=== PATIENT | male | born 1990 | race African-American/Black ===

== ENCOUNTER 2016-10-19 08:21 | Emergency (ER) | payer OTHER ==
[~2016-10-19] VITALS: Ht 180.3 cm; Wt 97.5 kg
[~2016-10-19 08:21] MED LIST: AMOX500C2 PO; BENZ1LOZ52 MM; IBUP800T25 PO
[2016-10-19 08:28] VITALS: Ht 180.3 cm; Wt 97.5 kg
[2016-10-19] MEDS ORDERED: DEXAMETHASONE 10 MG/ML 1 ML INJ PO ONE (09:00)
[2016-10-19] MEDS ORDERED: IBUPROFEN 600 MG TAB PO ONE (09:00)
[2016-10-19] MEDS ORDERED: PENI500T PO (09:15)
[2016-10-19] MEDS ORDERED: TYL500 PO (09:15)
--- NOTE | 2016-10-19 09:25 | ERD ---
ER Documentation Chief Complaint Date/Time DATE: 10/19/16 TIME: 09:22 Chief Complaint sore throat for 2 days no difficutly breathing HPI This is a 25-year-old male presents to the ER with a sore throat for the last 2 days. Patient states that it is painful for him to swallow, however he denies difficulty in breathing or swallowing. Patient has had a fever and chills. He denies a cough. Patient has recurrent episodes of strep throat. There are no sick contacts at home. ROS 12 point review of systems was done, all negative except per HPI. Medications Home Meds Active Scripts Acetaminophen* (Tylenol*) 500 Mg Tab, 500 MG PO Q4H Y for MILD PAIN LEVEL 1-3 for 3 Days, TAB Prov:ZOE GAINES 10/19/16 Penicillin V Potassium* (Penicillin V K*) 500 Mg Tab, 500 MG PO TID for 10 Days , TAB Prov:ZOE GAINES 10/19/16 Benzocaine/Menthol* (Cepacol* Sore Throat Lozenges) 1 Each Lozenge, 1 EACH MM q2h Y for SORE THROAT, #30 LOZENGE Prov:CHINO MILLER PA-C 01/21/16 Ibuprofen* (Motrin*) 800 Mg Tab, 800 MG PO Q8, #30 TAB Prov:CHINO MILLER PA-C 01/21/16 Amoxicillin* (Amoxicillin*) 500 Mg Cap, 500 MG PO BID for 10 Days, CAP Prov:CHINO MILLER PA-C 01/21/16 Allergies Allergies: Coded Allergies: No Known Allergy (Verified , 10/19/16) PMhx/Soc Anesthesia Reaction: No Hx Neurological Disorder: No Hx Respiratory Disorders: No Hx Cardiac Disorders: No Hx Psychiatric Problems: No Hx Miscellaneous Medical Probl: No Hx Alcohol Use: No Hx Substance Use: Yes (Thc use) Hx Tobacco Use: No Smoking Status: Never smoker Physical Exam Vitals Vital Signs Date Time Temp Pulse Resp B/P Pulse Ox O2 Delivery O2 Flow Rate FiO2 10/19/16 08:28 98.4 66 16 134/80 99 Physical Exam GENERAL: The patient is well-developed, well-nourished, in no acute distress. NECK: Cervical spine is non tender with no step off. Supple, no nuchal rigidity HEENT: Atraumatic. Pupils equal, round and reactive to light. Extraocular muscles are grossly intact. Conjunctivae pink, no discharge. Bilateral tympanic membranes are clear with no evidence of erythema, effusion or dulling of the light reflex. No tonsillar erythema with exudates, no uvular deviation no kissing tonsils. Clear rhinorrhea. RESPIRATORY: Clear to auscultation bilaterally. There are no rales, wheezes or rhonchi. HEART: Regular rate and rhythm. No murmurs, clicks, rubs or gallops. EXTREMITIES: No clubbing or cyanosis. Full range of motion. Grossly neurovascularly intact. NEUROLOGIC: Alert and oriented. Cranial nerves II through XII are intact. SKIN: There is no rash. The skin is warm and dry. Results 24 hrs Current Medications Medications (Trade) Dose Ordered Sig/Yuliana Route PRN Reason Start Time Stop Time Status Last Admin Dose Admin Dexamethasone (Decadron) 10 mg ONCE ONCE PO 10/19/16 09:00 10/19/16 09:01 DC 10/19/16 09:08 Ibuprofen (Motrin) 600 mg ONCE ONCE PO 10/19/16 09:00 10/19/16 09:01 DC 10/19/16 09:08 Procedures/MDM This is a 25-year-old male presents here with a sore throat. On physical examination patient does have strep pharyngitis. Suspicion for retropharyngeal abscess or peritonsillar abscess is low does not have any uvular deviation or kissing tonsils. Patient was given a dose of steroids in the ER and ibuprofen for his pain and tonsillar swelling without complications. He will be sent home with penicillin. He needs to follow-up with his primary care doctor within 1-2 days or return to ER sooner if symptoms worsen. My medical decision making shared with the patient he understands and agrees with plan. Departure Diagnosis: Primary Impression: Strep throat Condition: Stable Patient Instructions: Strep Throat Additional Instructions: Call your primary care doctor TOMORROW for an appointment during the next 1-2 days.See the doctor sooner or return here if your condition worsens before your appointment time. ZOE GAINES Oct 19, 2016 09:25
== END 2016-10-19 09:32 | disposition home or self-care (01) ==
LOC: FTE 08:21
DX: J02.0 Streptococcal pharyngitis (principal)
CPT/HCPCS: J1100; Z7502; Z7610; 99283

== ENCOUNTER 2016-10-24 00:29 | Emergency (ER) | payer OTHER ==
[~2016-10-24] VITALS: Ht 180.3 cm; Wt 92.5 kg
[~2016-10-24 00:29] MED LIST changes: +AMO500 PO; -AMOX500C2 PO; +PEN500 PO; +TYL500 PO
[2016-10-24 00:34] VITALS: Ht 180.3 cm; Wt 92.5 kg
[2016-10-24] MEDS ORDERED: IOHEXOL 300MG/ML 150 ML BTL ONE (02:03)
[2016-10-24] MEDS ORDERED: SOD CHLORIDE 0.9% 100 ML ONE (02:03)
[2016-10-24] MEDS ORDERED: BENZOCAINE 20% 56 ML SPRAY TOP STA (02:03)
[2016-10-24] MEDS ORDERED: PIPER-TAZO 3.375 GM IV (PMX) 100 ML IVPB STA (02:03)
[2016-10-24 02:05] LABS: BASOPHILS % 0.2 % (0.0-2.0); EOSINOPHILS % 0.2 % (0.0-7.0); HEMATOCRIT 44.6 % (42.0-52.0); HEMOGLOBIN 15.1 g/dl (14.0-18.0); LYMPHOCYTES # 2.5 10^3/ul (0.8-2.9); LYMPHOCYTES % 15.1 % (15.0-51.0); MEAN CORPUSCULAR HEMOGLOBIN 30.1 pg (29.0-33.0); MEAN CORPUSCULAR HGB CONC 33.9 g/dl (32.0-37.0); MEAN CORPUSCULAR VOLUME 88.8 fl (82.0-101.0); MEAN PLATELET VOLUME 9.6 fl (7.4-10.4); MONOCYTE # 1.4 10^3/ul (0.3-0.9); MONOCYTES % 8.7 % (0.0-11.0); NEUTROPHILS % 75.4 % (39.0-77.0); PLATELET COUNT 257 10^3/UL (140-415); RED BLOOD COUNT 5.02 10^6/ul (4.70-6.10); RED CELL DISTRIBUTION WIDTH 13.8 % (11.5-14.5); WHITE BLOOD COUNT 16.5 10^3/ul (4.8-10.8)
[2016-10-24] MEDS ORDERED: KETOROLAC 30 MG INJ IV STA (02:07)
[2016-10-24 02:26] LABS: ALBUMIN/GLOBULIN RATIO 1.11; BILIRUBIN,INDIRECT 0.9 mg/dl (0-1.1); BILIRUBIN,TOTAL 0.9 mg/dl (0.2-1.3); CALCIUM 10.7 mg/dl (8.4-10.2); CREATININE 1.09 mg/dl (0.61-1.24); POTASSIUM 3.7 mmol/L (3.5-5.1); TOTAL PROTEIN 9.5 g/dl (6.1-8.1)
[2016-10-24] MEDS ORDERED: CLINDAMYCIN 600 MG/D5W (PMX) 50 ML IVPB STA (02:41)
[2016-10-24] MEDS ORDERED: CLIN-73 PO (02:48)
[2016-10-24] MEDS ORDERED: NAPR-260 PO (02:48)
--- NOTE | 2016-10-24 02:59 | ERD ---
ER Documentation Chief Complaint Date/Time DATE: 10/24/16 TIME: 02:50 Chief Complaint sore throat; seen Wed here but not improving. denies NVD. HPI 5-year-old male presents to the emergency room for severe sore throat since last. Patient was evaluated at this facility on Monday and was given penicillin, patient states that he has been taking and found no improvement. Patient states that he has been worsening today. Denies any shortness of breath however he he states that he has a muffled voice. ROS All systems reviewed and are negative except as per history of present illness. Medications Home Meds Active Scripts Naproxen* (Naprosyn*) 500 Mg Tablet, 500 MG PO BID Y for PAIN AND/OR INFLAMMATION, #30 TAB Prov:ASHLEY MENCHACA PA-C 10/24/16 Clindamycin Hcl* (Clindamycin Hcl*) 300 Mg Capsule, 300 MG PO TID for 10 Days, CAP Prov:ASHLEY MENCHACA PA-C 10/24/16 Acetaminophen* (Tylenol*) 500 Mg Tab, 500 MG PO Q4H Y for MILD PAIN LEVEL 1-3 for 3 Days, TAB Prov:ZOE GAINES 10/19/16 Penicillin V Potassium* (Penicillin V K*) 500 Mg Tab, 500 MG PO TID for 10 Days , TAB Prov:ZOE GAINES 10/19/16 Benzocaine/Menthol* (Cepacol* Sore Throat Lozenges) 1 Each Lozenge, 1 EACH MM q2h Y for SORE THROAT, #30 LOZENGE Prov:CHINO MILLER PA-C 01/21/16 Ibuprofen* (Motrin*) 800 Mg Tab, 800 MG PO Q8, #30 TAB Prov:CHINO MILLER PA-C 01/21/16 Amoxicillin* (Amoxicillin*) 500 Mg Cap, 500 MG PO BID for 10 Days, CAP Prov:CHINO MILLER PA-C 01/21/16 Allergies Allergies: Coded Allergies: No Known Allergy (Verified , 10/19/16) PMhx/Soc Anesthesia Reaction: No Hx Neurological Disorder: No Hx Respiratory Disorders: No Hx Cardiac Disorders: No Hx Psychiatric Problems: No Hx Miscellaneous Medical Probl: No Hx Alcohol Use: No Hx Substance Use: Yes (Thc use) Hx Tobacco Use: No Smoking Status: Never smoker Physical Exam Vitals Vital Signs Date Time Temp Pulse Resp B/P Pulse Ox O2 Delivery O2 Flow Rate FiO2 10/24/16 00:34 98.1 67 20 160/102 94 Physical Exam Const: WDWN, airways intact Head: Atraumatic Eyes: Normal Conjunctiva ENT: Normal External Ears, Nose moderate left peritonsillar abscess Neck: Full range of motion..~ No meningismus. Resp: Clear to auscultation bilaterally Cardio: Regular rate and rhythm, no murmurs Abd: Soft, non tender, non distended. Normal bowel sounds Skin: No petechiae or rashes Back: No midline or flank tenderness Ext: No cyanosis, or edema Neur: Awake and alert Psych: Normal Mood and Affect Result Diagram: 10/24/1613410/24/16134 Results 24 hrs Laboratory Tests Test 10/24/16 01:35 White Blood Count 16.510^3/ul Red Blood Count 5.0210^6/ul Hemoglobin 15.1g/dl Hematocrit 44.6% Mean Corpuscular Volume 88.8fl Mean Corpuscular Hemoglobin 30.1pg Mean Corpuscular Hemoglobin Concent 33.9g/dl Red Cell Distribution Width 13.8% Platelet Count 17564^3/UL Mean Platelet Volume 9.6fl Neutrophils % 75.4% Lymphocytes % 15.1% Monocytes % 8.7% Eosinophils % 0.2% Basophils % 0.2% Nucleated Red Blood Cells % 0.0/100WBC Neutrophils # (Manual) 12.410^3/ul Lymphocytes # 2.510^3/ul Monocytes # 1.410^3/ul Eosinophils # 0.010^3/ul Basophils # 0.010^3/ul Nucleated Red Blood Cells # 0.010^3/ul Sodium Level 144mmol/L Potassium Level 3.7mmol/L Chloride Level 103mmol/L Carbon Dioxide Level 25mmol/L Anion Gap 20 Blood Urea Nitrogen 15mg/dl Creatinine 1.09mg/dl Glucose Level 114mg/dl Calcium Level 10.7mg/dl Total Bilirubin 0.9mg/dl Direct Bilirubin 0.00mg/dl Indirect Bilirubin 0.9mg/dl Aspartate Amino Transf (AST/SGOT) 23IU/L Alanine Aminotransferase (ALT/SGPT) 23IU/L Alkaline Phosphatase 87IU/L Total Protein 9.5g/dl Albumin 5.0g/dl Globulin 4.50g/dl Albumin/Globulin Ratio 1.11 Current Medications Medications (Trade) Dose Ordered Sig/Yuliana Route PRN Reason Start Time Stop Time Status Last Admin Dose Admin Sodium Chloride (NS) 100 ml @ ud STK-MED ONCE .ROUTE 10/24/16 02:03 10/24/16 02:04 DC Iohexol 150 ml 150 ml STK-MED ONCE .ROUTE 10/24/16 02:03 10/24/16 02:04 DC 10/24/16 02:21 Piperacillin Sod/ Tazobactam Sod (Zosyn 3.375gm/ 100 ml (Pmx)) 100 ml @ 200 mls/hr ONCE STAT IVPB 10/24/16 02:03 10/24/16 02:32 DC 10/24/16 02:26 Benzocaine (Dermoplast Sherman) 1 spray PRN STAT TOP 10/24/16 02:03 10/24/16 02:05 DC 10/24/16 02:26 Ketorolac Tromethamine (Toradol) 30 mg ONCE STAT IV 10/24/16 02:07 10/24/16 02:08 DC 10/24/16 02:25 Dexamethasone 10 mg 10 mg ONCE ONCE IV 10/24/16 03:00 10/24/16 03:01 Clindamycin HCl/ Dextrose (Cleocin 600 Mg/ D5W (Pmx)) 50 ml @ 50 mls/hr ONCE STAT IVPB 10/24/16 02:41 10/24/16 03:40 Procedures/MDM 35-year-old male presents to the emergency department with left peritonsillar abscess. He was evaluated at this facility last Monday and was given penicillin, patient returns with no improvement and worsening condition. Patient is nontoxic appearing, afebrile, he appears well. His airways are intact and has no evidence of respiratory distress or stridor. IV access established, patient was given, Decadron and Unasyn. I have consulted my supervising physician who has also evaluated the patient. I have assisted to aspirate the abscess. Verbal consent was obtained, benzocaine spray was applied using a spinal needle and syringe, this amount of purulence was drained without any complications. Patient had significant improvement in symptoms. Patient stable to be discharged home with strict precautions to return to the emergency department for any worsening signs or symptoms. I discussed with the patient to follow-up with an ENT specialist tomorrow. Patient clindamycin was provided. Patient understands and agrees with this plan Departure Diagnosis: Primary Impression: Peritonsillar abscess Condition: Stable Patient Instructions: Peritonsillar Abscess Additional Instructions: FOLLOW UP WITH YOUR PRIMARY CARE PHYSICIAN TOMORROW.Return to this facility if you are not improving as expected. Take all medicines as directed. Return to this facility if you are not improving as expected. ASHLEY MENCHACA PA-C Oct 24, 2016 02:59
[2016-10-24] MEDS ORDERED: DEXAMETHASONE 10 MG/ML 1 ML INJ IV ONE (03:00)
== END 2016-10-24 04:08 | disposition home or self-care (01) ==
LOC: FTE 00:29
DX: J36 Peritonsillar abscess (principal)
CPT/HCPCS: 36415; 80053; 85025; 96374; 96375; J1100; J1885; J2543; Q9967; Z7502; Z7610

== ENCOUNTER 2018-01-10 20:06 | Emergency (ER) | END 2018-01-10 23:34 | disposition home or self-care (01) ==